=== PATIENT | female | born 1980 | race Caucasian/White ===

== ENCOUNTER 2018-09-03 15:22 | Emergency (ER) | payer BC ==
[~2018-09-03] VITALS: Ht 149.9 cm; Wt 61.4 kg
[2018-09-03 15:31] VITALS: TEMP 98.2
[2018-09-03] MEDS ORDERED: MAXALT MLT10 MG/TAB PO (15:54)
[2018-09-03] MEDS ORDERED: TOPAMAX 100MG100 M1 PO (15:55)
[2018-09-03] MEDS ORDERED: ALDACTONE50 MG PO (15:55)
[2018-09-03] MEDS ORDERED: DEPO-PROVE150 MG/1 M IM (15:55)
[2018-09-03] MEDS ORDERED: AMITRIPTYLINE H50 M1 PO (15:55)
[2018-09-03] MEDS ORDERED: PROZAC 20MG20 MG PO (15:55)
[2018-09-03] MEDS ORDERED: LIDODERM 5% PATC1 EA TP (17:36)
[2018-09-03] MEDS ORDERED: FLEXERIL 1010 MG/TAB PO (17:36)
[2018-09-03 17:43] VITALS: BP 121/74; PULSE 94
== END 2018-09-03 18:00 | disposition home or self-care (01) ==
LOC: COL.ER 15:22
DX: M54.5 Low back pain (principal); G43.909 Migraine, unspecified, not intractable, without status migrainosus
CPT/HCPCS: J1885; J2360

== ENCOUNTER → 2019-11-24 | Outpatient (CLI) | payer BC ==
[~2019-11-24] MED LIST: ALDACTONE50 MG PO; AMITRIPTYLINE H50 M1 PO; DEPO-PROVE150 MG/1 M IM; FLEXERIL 1010 MG/TAB PO; LIDODERM 5% PATC1 EA TP; MAXALT MLT10 MG/TAB PO; PROZAC 20MG20 MG PO; TOPAMAX 100MG100 M1 PO
== END ==
LOC: MC.RAD 16:39
DX: Z12.31 Encounter for screening mammogram for malignant neoplasm of breast (principal)

== ENCOUNTER → 2019-12-08 | Outpatient (CLI) | payer BC | LOC: MC.RAD 08:44 | DX: Z01.411 Encounter for gynecological examination (general) (routine) with abnormal findings (principal); N63.10 Unspecified lump in the right breast, unspecified quadrant ==

== ENCOUNTER → 2021-12-17 | Outpatient (CLI) | payer BC | LOC: MC.RAD 12:53 | DX: N63.10 Unspecified lump in the right breast, unspecified quadrant (principal) ==

== ENCOUNTER → 2022-06-17 | Outpatient (CLI) | payer BC | LOC: MC.RAD 06:57 | DX: N63.10 Unspecified lump in the right breast, unspecified quadrant (principal); R92.8 Other abnormal and inconclusive findings on diagnostic imaging of breast ==